=== PATIENT | male | born 1995 | race African-American/Black ===

== ENCOUNTER 2021-09-06 18:30 | Emergency (ER) | payer OTHER | END 2021-09-06 22:12 | disposition left against medical advice (07) | LOC: MW.ED 18:30 | DX: S61.219A Laceration without foreign body of unspecified finger without damage to nail, initial encounter (principal); Z53.21 Procedure and treatment not carried out due to patient leaving prior to being seen by health care provider ==

== ENCOUNTER 2023-04-11 16:43 | Emergency (ER) | payer SELFPAY ==
[2023-04-11 17:20] LABS: BASOPHILS ABSOLUTE AUTO 0.01 K/uL (0.00-0.20); BASOPHILS PERCENT AUTO 0.2 % (0.0-1.0); EOSINOPHILS ABSOLUTE AUTO 0.02 K/uL (0.00-0.45); EOSINOPHILS PERCENT AUTO 0.4 % (0.0-6.0); HEMATOCRIT 40.2 % (42.0-52.0); HEMOGLOBIN 13.6 g/dL (14.0-18.0); IMMATURE GRAN ABSOLUTE AUTO 0.01 K/uL (0.00-0.05); IMMATURE GRAN PERCENT AUTO 0.2 % (0.0-0.4); LYMPHOCYTES PERCENT AUTO 34.3 % (24.0-44.0); MEAN CORPUSCULAR HEMOGLOBIN 28.8 pg (28.0-32.0); MEAN CORPUSCULAR HGB CONC 33.8 g/dL (32.0-36.0); MEAN PLATELET VOLUME 8.1 fL (9.4-12.4); MONOCYTES ABSOLUTE AUTO 0.68 K/uL (0.00-0.80); MONOCYTES PERCENT AUTO 14.6 % (0.0-8.0); NEUTROPHILS ABSOLUTE AUTO 2.34 K/uL (1.80-7.70); NEUTROPHILS PERCENT AUTO 50.3 % (41.0-71.0); PLATELET COUNT,PLT 255 K/uL (150-400); RED BLOOD CELL COUNT 4.73 M/uL (4.52-5.90); WHITE BLOOD CELL COUNT,WBC 4.66 K/uL (3.9-11.3)
[2023-04-11 17:50] LABS: A/G RATIO 1.3 (0.9-1.6); ALBUMIN 4.4 g/dL (3.4-5.0); BILIRUBIN TOTAL 1.1 mg/dL (0.2-1.0); CARBON DIOXIDE,CO2 28.2 mmol/L (21.0-32.0); CREATININE 1.1 mg/dL (0.8-1.3); EST CRCL DRUG DOSING (CG) 116.49 mL/min; POTASSIUM,K 3.4 mmol/L (3.5-5.1); PROTEIN TOTAL,TP 7.8 g/dL (6.4-8.2)
[2023-04-11 17:54] LABS: AMPHETAMINES SCREEN, URINE NEGATIVE (CUTOFF=500); BARBITURATE SCREEN,URINE NEGATIVE (CUTOFF=200); BENZODIAZEPINES SCREEN,URINE NEGATIVE (CUTOFF=150); BUPRENORPHINE SCREEN,URINE NEGATIVE (CUTOFF=10); METHADONE SCREEN, URINE NEGATIVE (CUTOFF=200); METHAMPHETAMINES SCREEN, URINE NEGATIVE (CUTOFF=500); OXYCODONE SCREEN,URINE NEGATIVE (CUT0FF=100); PCP SCREEN,URINE NEGATIVE (CUTOFF=25); THC SCREEN,URINE 20 NG/ML PRESUMPTIVE POSITIVE (CUTOFF=50)
[2023-04-11 17:56] LABS: ACETAMINOPHEN <2.0 ug/mL; SALICYLATE 1.1 mg/dL (0.0-20.0)
[2023-04-12] MEDS ORDERED: Nicotine 21 MG/24 Hr Patch TRDERM ONE (00:23)
[2023-04-12] MEDS ORDERED: Nicotine 14 MG/24 Hr Patch TRDERM ONE (00:25)
== END 2023-04-12 07:43 ==
LOC: MW.ED 16:43
DX: R45.851 Suicidal ideations (principal)
CPT/HCPCS: 36415; 70450; 80053; 80143; 80179; 80305; 80307; 85025; 99285; A9270

== ENCOUNTER 2024-09-21 19:41 | Emergency (ER) | payer SELFPAY ==
[2024-09-21] MEDS ORDERED: Sodium Chloride 0.9% 10 ML Syringe FLUSH PRN (20:22)
[2024-09-21] MEDS ORDERED: Sodium Chloride 0.9% 2.5 ML Syringe FLUSH PRN (20:22)
[2024-09-21 20:33] LABS: BASOPHILS ABSOLUTE AUTO 0.02 K/uL (0.00-0.20); BASOPHILS PERCENT AUTO 0.3 % (0.0-1.0); EOSINOPHILS ABSOLUTE AUTO 0.04 K/uL (0.00-0.45); EOSINOPHILS PERCENT AUTO 0.7 % (0.0-6.0); IMMATURE GRAN ABSOLUTE AUTO 0.02 K/uL (0.00-0.05); IMMATURE GRAN PERCENT AUTO 0.3 % (0.0-0.4); LYMPHOCYTES ABSOLUTE AUTO 0.80 K/uL (1.00-4.80); LYMPHOCYTES PERCENT AUTO 13.2 % (24.0-44.0); MEAN PLATELET VOLUME 8.1 fL (9.4-12.4); MONOCYTES ABSOLUTE AUTO 0.54 K/uL (0.00-0.80); MONOCYTES PERCENT AUTO 8.9 % (0.0-8.0); NEUTROPHILS ABSOLUTE AUTO 4.64 K/uL (1.80-7.70); NEUTROPHILS PERCENT AUTO 76.6 % (41.0-71.0); NRBC ABSOLUTE 0.00 K/uL (0.00-0.02); NRBC PERCENT 0.0 /100WBC (0.0-0.2); PLATELET COUNT,PLT 231 K/uL (150-400); RED BLOOD CELL COUNT 4.82 M/uL (4.52-5.90); WHITE BLOOD CELL COUNT,WBC 6.06 K/uL (3.9-11.3)
[2024-09-21] MEDS: diphenhydrAMINE 50 MG/ML SDV IVPUSH ONE (20:37)
[2024-09-21] MEDS: droPERidol 2.5 MG/ML SDV IVPUSH ONE (20:37)
[2024-09-21 20:40] LABS: APPEARANCE,URINE CLEAR; GLUCOSE,URINE NEGATIVE (NEGATIVE); OCCULT BLOOD,URINE SMALL (NEGATIVE)
[2024-09-21] MEDS: Iopamidol 755 MG/ML 500 ML Multipack Bottle IVPUSH STA (20:46)
[2024-09-21 20:56] LABS: EPITHELIAL CELLS,URINE RARE (NONE-FEW)
[2024-09-21 21:03] LABS: A/G RATIO 1.4 (0.9-1.6); ALANINE AMINOTRANSFERASE,ALT 72.0 IU/L (14-63); ASPARTATE AMNIOTRANSFERASE,AST 120.0 IU/L (15-37); BILIRUBIN TOTAL 1.4 mg/dL (0.2-1.0); BLOOD UREA NITROGEN,BUN 10.0 mg/dL (7.0-18.0); CARBON DIOXIDE,CO2 21.3 mmol/L (21.0-32.0); CHLORIDE,CL 94.0 mmol/L (98-107); CREATINE KINASE,CK 326.0 U/L (26-308); CREATININE 1.0 mg/dL (0.8-1.3); EST CRCL DRUG DOSING (CG) 117.32 mL/min; GLUCOSE RANDOM 72.0 mg/dL (74-106); POTASSIUM,K 4.1 mmol/L (3.5-5.1); PROTEIN TOTAL,TP 8.0 g/dL (6.4-8.2); SODIUM,NA 133.0 mmol/L (136-148)
[2024-09-21 21:04] LABS: ESTIMATED GFR 104.0 mL/min (>60)
[2024-09-21 21:36] LABS: CORONAVIRUS COVID-19 NAA NEGATIVE (NEGATIVE); INFLUENZA A NAA NEGATIVE (NEGATIVE); INFLUENZA B NAA NEGATIVE (NEGATIVE)
== END 2024-09-21 22:41 | disposition home or self-care (01) ==
LOC: MW.ED 19:41
DX: R07.9 Chest pain, unspecified (principal); R10.12 Left upper quadrant pain; M79.10 Myalgia, unspecified site
CPT/HCPCS: 36415; 71045; 74177; 80053; 81001; 82550; 83690; 84484; 85025; 87636; 93005; 96361; 96374; 96375; 99285; J1200; J1790; J7030; Q9967; 99283